=== PATIENT | female | born 1985 | race Caucasian/White ===

== ENCOUNTER 2020-06-29 16:53 | Emergency (ER) | payer MEDICAID ==
--- NOTE | 2020-06-29 17:14 | EDM.PDOC ---
ED HPI GENERAL MEDICAL PROBLEM - General Chief Complaint: PERSONAL COMPUTER SPECIALIST Problem Stated Complaint: POSSIBLE FOREIGN BODY Time Seen by Provider: 06/29/20 17:02 Source of Information: Reports: Patient - History of Present Illness INITIAL COMMENTS - FREE TEXT/NARRATIVE: Chelly is a 35 y/o female who comes to the ER with a complaint of having "a condom in her vagina". Patient reports that she had intercourse about a week ago and she thinks there may be a condom in her vagina. She is having lots of irritation and some vaginal discharge. Denies any bleeding. She did not feel the condom herself, but her told it may be lost there. She is also currently being treated for a UTI, but is unsure of the antibiotic. She is currently traveling though the [place] from [place] to [place] a [place]. - Related Data Allergies Allergy/AdvReac Type Severity Reaction Status Date / Time iodine Allergy Cannot Verified 06/29/20 17:10 Remember Home Meds: Home Meds metroNIDAZOLE [Metronidazole] 500 mg PO BID #14 tablet 06/29/20 [Rx] Review of Systems - Review of Systems Review Of Systems: See Below Constitutional: Reports: No Symptoms Eyes: Reports: No Symptoms Ears: Reports: No Symptoms Nose: Reports: No Symptoms Mouth/Throat: Reports: No Symptoms Respiratory: Reports: No Symptoms Cardiovascular: Reports: No Symptoms GI/Abdominal: Reports: No Symptoms Genitourinary: Reports: Other (Vaginal irritation) Musculoskeletal: Reports: No Symptoms Skin: Reports: No Symptoms Neurological: Reports: No Symptoms Psychiatric: Reports: No Symptoms ED EXAM, GENERAL - Physical Exam Exam: See Below Exam Limited By: No Limitations General Appearance: Alert, WD/WN, No Apparent Distress (Adult female) Ears: Hearing Grossly Normal Head: Atraumatic, Normocephalic Respiratory/Chest: No Respiratory Distress GI/Abdominal: Soft (Female) Exam: Normal External Exam, Vaginal Discharge (moderate amount of white, milky discharge noted in vagina, vaginal gonzalez rugious, cervic nulliparous and note clear fluid at os) Rectal (Female) Exam: Deferred Back Exam: Normal Inspection Extremities: Normal Inspection Neurological: Alert, Oriented Psychiatric: Normal Affect, Normal Mood Skin Exam: Warm, Dry, Intact, Normal Color Lymphatic: No Adenopathy Course - Vital Signs Text/Narrative:: 170 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 Speculum exam done. Wet prep obtained. 1730 Wet prep results reviewed: Neg yeast, Neg Trich, Few Clue Cells present. Since patient is symptomatic and has clue cells, will treat for BV. Results discussed with patient. Questions answered. She let the ER in stable condition after instructions were given. Last Recorded V/S: Last Vital Signs Temp 36.9 C 06/29/20 16:55 Pulse 89 06/29/20 16:55 Resp 16 06/29/20 16:55 BP 140/88 06/29/20 16:55 Pulse Ox 99 06/29/20 16:55 Departure - Departure Time of Disposition: 17:33 Disposition: Home, Self-Care 01 Condition: Good Clinical Impression: Bacterial vaginosis Urinary tract infection Qualifiers: Urinary tract infection type: site unspecified - Discharge Information Prescriptions: metroNIDAZOLE [Metronidazole] 500 mg PO BID #14 tablet Instructions: Urinary Tract Infection, Adult, Bacterial Vaginosis Referrals: PCP,None [Primary Care Provider] - Forms: ED Department Discharge Sepsis Event Note (ED) - Evaluation Sepsis Screening Result: No Definite Risk - Focused Exam Vital Signs: Vital Signs Temp Pulse Resp BP Pulse Ox 06/29/20 16:55 36.9 C 89 16 140/88 99 - Assessment/Plan Assessment:: 1)Bacterial Vaginosis 2)UTI, resolving Plan: -Metronidiazole 500 mg oral 2x daily #14(Rx) -Avoid douching, tampons, or intercourse until medication is completed. -Continue antibiotic you were given for the UTI -Follow up with your PCP if you have further concerns or return to the nearest ER.
== END 2020-06-29 17:41 | disposition home or self-care (01) ==
LOC: VM.ED 16:53
DX: N39.0 Urinary tract infection, site not specified (principal); N76.0 Acute vaginitis; Z91.048 Other nonmedicinal substance allergy status
CPT/HCPCS: 87210; 99283